=== PATIENT | male | born 1985 | race Caucasian/White ===

== ENCOUNTER → 2016-10-13 | Outpatient (CLI) | payer SELFPAY ==
--- NOTE | 2016-10-13 10:55 | DI ---
XR C-SPINE 2-3 VW,10/13/2016 9:42 AM: Clinical History: Neck pain Previous Exam: None at this facility. Findings: 3 views of the cervical spine are obtained, and demonstrate partial flexion of the cervical spine holly tered at the C5/6 level. The prevertebral soft tissues are unremarkable. Vertebral body height is pre served. The lung apices are clear. The skull base is unremarkable. Impression: Focal flexion at the C5/6 level without fractures. Correlate clinically as this could represent ligam entous injury or spasm.
--- NOTE | 2016-10-13 11:17 | DI ---
XR L-SPINE 2-3 VW,10/13/2016 10:24 AM: Clinical History: Acute low back pain of unknown laterality. Previous Exam: None at this facility. Findings: 3 views of the lumbar spine are obtained, and demonstrate anatomic alignment without fractures. Verte bral body height is preserved. A nonobstructive bowel gas pattern is seen. Impression: Normal lumbar spine.
== END ==
LOC: MOB RAD 09:49
PROVIDERS: ATTEND Family Medicine
DX: M54.2 Cervicalgia (principal); M54.5 Low back pain; F17.210 Nicotine dependence, cigarettes, uncomplicated; V49.88XA Car occupant (driver) (passenger) injured in other specified transport accidents, initial encounter; Y92.414 Local residential or business street as the place of occurrence of the external cause
CPT/HCPCS: 72040; 72100